=== PATIENT | male | born 1935 | race Caucasian/White ===

== ENCOUNTER 2018-11-17 15:48 | Emergency (ER) | payer MEDICARE, OTHER ==
[2018-11-17] MEDS: BACITRACIN 0.9 GM OINT TOP (19:01)
== END 2018-11-17 19:25 | disposition home or self-care (01) ==
LOC: FTE 15:48
DX: S00.412A Abrasion of left ear, initial encounter (principal); X58.XXXA Exposure to other specified factors, initial encounter; Y92.9 Unspecified place or not applicable; Z87.891 Personal history of nicotine dependence
CPT/HCPCS: 99282